=== PATIENT | male | born 1985 | race Caucasian/White ===

== ENCOUNTER 2016-10-20 08:40 | Emergency (ER) | payer SELFPAY ==
[~2016-10-20] VITALS: Ht 177.8 cm; Wt 90.7 kg
[2016-10-20 08:57] VITALS: BP 141/99
== END 2016-10-20 09:27 | disposition home or self-care (01) ==
LOC: ER 08:40
DX: J20.9 Acute bronchitis, unspecified (principal)
CPT/HCPCS: 71020